=== PATIENT | female | born 1975 | race Caucasian/White ===

== ENCOUNTER 2018-09-11 10:33 | Emergency (ER) | payer SELFPAY ==
[2018-09-11 11:02] VITALS: BP 103/61; PULSE 71
--- NOTE | 2018-09-11 11:37 | ED PDOC ---
HPI: Skin/Bite Injury Time Seen by Provider: 09/11/18 11:25 History Per: Patient Onset/Duration Of Symptoms: Days (7) Current Symptoms Are (Timing): Still Present Location Of Injury: Anterior: Chest, Face Quality Of Symptoms: Itching, Swollen Severity: Mild Additional Complaint(s): Rash, itching and swelling to upper chest and face x 1 week. Had nuclear throid scan with iodine 1 week ago and developed sxs after having scan. Denies SOB ot rightness in throat. Denies fever or difficulty swallowing Past Medical History Vital Signs: Last Vital Signs Temp 97 F L 09/11/18 11:01 Pulse 71 09/11/18 11:01 Resp 16 09/11/18 11:01 BP 103/61 09/11/18 11:01 Pulse Ox 99 09/11/18 11:01 - Medical History PMH: No Chronic Diseases - Family History Family History: States: Unknown Family Hx - Immunization History Hx Tetanus Toxoid Vaccination: No (can't remember) Hx Influenza Vaccination: Yes - Home Medications Home Medications: Ambulatory Orders Medication Instructions Recorded Ibuprofen 1 tab PO TID PRN #30 tab 01/05/14 Mineral Oil/Petrolatum,White 1 gm TP TID #1 cream..g. 09/11/18 [Eucerin Creme] Prednisone 50 mg PO DAILY #5 tab 09/11/18 - Allergies Allergies/Adverse Reactions: Allergies Allergy/AdvReac Type Severity Reaction Status Date / Time Penicillins Allergy Verified 09/11/18 11:35 Review of Systems Constitutional: Negative for: Fever ENT: Negative for: Throat Pain, Throat Swelling Cardiovascular: Negative for: Chest Pain Respiratory: Negative for: Shortness of Breath, Wheezing Skin: Positive for: Rash Neurological: Negative for: Confusion, Dizziness Physical Exam - Physical Exam Appears: Positive for: Non-toxic, No Acute Distress Skin: Positive for: Rash (Erythemetous dry rash upper chest below neck in V shaped distribution, no involvement of neck. Pt states subjective swelling and dryness to face but no swelling noted.) ENT: Negative for: Pharyngeal Erythema, Tonsillar Swelling Neck: Positive for: Normal (No stridor), Painless ROM Cardiovascular/Chest: Positive for: Regular Rate, Rhythm Respiratory: Positive for: CNT, Normal Breath Sounds - ECG O2 Sat by Pulse Oximetry: 99 Medical Decision Making Medical Decision Making: Sxs most likely attributed to either iodine or scan. No stridor or respiratory distress note. SXS have been present x 1 week. Pt already taking Benadryl, will add prednisone and have pt f/u with PMD Disposition - Clinical Impression Clinical Impression: Allergic reaction - Patient ED Disposition Is Patient to be Admitted: No Counseled Patient/Family Regarding: Diagnosis, Need For Followup, Rx Given - Disposition Disposition: Routine/Home Disposition Time: 11:41 Condition: FAIR Prescriptions: Mineral Oil/Petrolatum,White [Eucerin Creme] 1 gm TP TID #1 cream..g. Prednisone 50 mg PO DAILY #5 tab Instructions: Drug Allergy Print Language: LIBYAN
[2018-09-11 11:50] VITALS: RESP 19; TEMP 97; O2SAT 100
== END 2018-09-11 12:22 | disposition home or self-care (01) ==
LOC: H.ER 10:33
DX: T78.40XA Allergy, unspecified, initial encounter (principal)

== ENCOUNTER 2018-09-25 10:53 | Day surgery (SDC) | payer SELFPAY ==
[2018-09-25 11:50] VITALS: BMI 26.4
[2018-09-25 12:34] VITALS: TEMP 98.2; O2SAT 100
[2018-09-25] MEDS ORDERED: Lidocaine Hydrochloride 5 ML INJ ONE (12:40)
[2018-09-25 13:27] VITALS: BP 93/58; PULSE 71; RESP 18
--- NOTE | 2018-09-26 12:58 | US ---
PROCEDURE: Date of Procedure: 09/25/2018 PROCEDURE: 1. Ultrasound guided FNA of left thyroid nodule, CPT 49496 2. Ultrasound guided FNA of RIGHT thyroid nodule, 3. Ultrasound guidance for FNA, [id number] Medications: 3cc 1% Lidocaine HISTORY: Enlarged thyroid nodules. TECHNIQUE: Following informed consent and procedure time-out, a limited ultrasound patient's neck confirmed the presence of a 2.4 cm complex solid right thyroid nodule. Also present is a complex, predominantly solid left thyroid nodule measuring 1.7cm. After the patient's neck was prepped and draped in the usual sterile fashion, the skin was anesthetized with 1% lidocaine. Ultrasound-guided fine needle aspiration was then performed of the dominant left thyroid nodule. A total of 5 passes were made into the nodule with 25 gauge needle under ultrasound guidance. The FNA specimen was sent for routine pathology and genetics. Ultrasound guided FNA was then performed of the dominant right thyroid nodule. Again 5passes were made into the nodule with 25 gauge needle. The FNA specimen was sent for routine pathology and genetics. Post biopsy ultrasound showed no hematoma. IMPRESSION: Ultrasound-guided FNA of the dominant right and left thyroid nodules.
== END 2018-09-25 13:40 | disposition home or self-care (01) ==
LOC: H.OPSURG 10:53
PROVIDERS: ATTEND Family Medicine
DX: E04.1 Nontoxic single thyroid nodule (principal)